=== PATIENT | female | born 1950 | race Caucasian/White ===

== ENCOUNTER → 2016-08-17 | Outpatient (CLI) | payer OTHER, MEDICAID ==
[2015-08-24 09:53] VITALS: BP 114/70
--- NOTE | 2016-08-17 15:35 | MG ---
HISTORY: Right breast asymmetry, 6 month followup Comparison: 02/15/2016 FINDINGS: Mammogram: There is a stable focal asymmetry seen at approximately the 9 o'clock position of the rig ht breast. No new suspicious mass, calcifications, architectural distortion or skin thickening is se en Ultrasound: Targeted ultrasound of the right breast demonstrates a focal area of ductal ectasia at t he 9 o'clock position, corresponding to previous abnormality measuring up to a 4.8 mm in greatest di ameter. No new cystic or solid masses are identified. IMPRESSION: Stable findings as described. No evidence of malignancy. ACR CATEGORY 2: Benign findings. Return to routine yearly screening. Diagnostic CAD was utilized and reviewed. * 0 (ZERO) - ASSESSMENT INCOMPLETE; ADDITIONAL IMAGING IS NEEDED. * 1/1 (ONE) - NEGATIVE. * 2/II (TWO) - BENIGN FINDINGS. * 3/III (THREE) - PROBABLY BENIGN FINDING; SHORT INTERVAL FOLLOW-UP SUGGESTED. * 4/IV (FOUR) - SUSPICIOUS ABNORMALITY; BIOPSY SHOULD BE CONSIDERED. * 5/V - HIGHLY SUSPICIOUS OF MALIGNANCY; BIOPSY SHOULD BE PERFORMED. A NEGATIVE X-RAY REPORT SHOULD NOT DELAY BIOPSY IF A DOMINANT OR CLINICALLY SUSPICIOUS MASS IS PRESENT; 4 TO 8 PERCENT OF CANCERS ARE NOT IDENTIFIED BY X-RAY. A NEG ATIVE REPORT MAY REINFORCE THE CLINICAL IMPRESSION. ADENOSIS AND DENSE BREASTS MAY OBSCURE AN UNDER LYING NEOPLASM. Reported By:
== END ==
LOC: RAD 13:48
PROVIDERS: ATTEND Nurse Practitioner Family
DX: R92.8 Other abnormal and inconclusive findings on diagnostic imaging of breast (principal)
CPT/HCPCS: 76642; 77065